=== PATIENT | female | born 1950 | race Caucasian/White ===

== ENCOUNTER → 2017-09-18 | Outpatient (CLI) | payer BC ==
[~2017-09-18] MED LIST: ASPIR 8181 MG PO; COZAAR100 MG PO; LIPITOR 20 MG T20 M1 PO; MOBIC15 MG PO; NORVASC5 MG PO
== END ==
LOC: RAD 14:55
DX: Z12.31 Encounter for screening mammogram for malignant neoplasm of breast (principal)

== ENCOUNTER 2017-09-24 12:18 | Emergency (ER) | payer BC ==
[~2017-09-24] VITALS: Ht 167.6 cm; Wt 63.5 kg
--- NOTE | ~2017-09-24 | EKG ---
[place] [address] [facility] [place] [address] ELECTROCARDIOGRAM REPORT Name: JERO BORRERO Room #: 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: GENE : 1950 Requested By: Alireza Serrato Order Number: [id number] MD: Usman Jones Measurements Intervals [place] Rate: 65 P: 30 DE: 150 QRS: 42 QRSD: 97 T: 10 QT: 398 QTc: 414 Interpretive Statements Sinus rhythm No significant abnormality Compared to ECG 04/22/2015 13:15:40 T-wave abnormality no longer present Electronically Signed On 09-24-2017 16:54:51 CDT by Usmna Jones [email or web address] <ELECTRONICALLY SIGNED> By: Usman Jones MD, [facility] 09/24/17 1654 1320 1320 Usman Jones MD, FACC /EPI
[~2017-09-24 12:18] MED LIST changes: -COZAAR100 MG PO; -MOBIC15 MG PO; -NORVASC5 MG PO
[2017-09-24] MEDS ORDERED: COZAAR100 MG PO (12:22)
[2017-09-24] MEDS ORDERED: NORVASC5 MG PO (12:23)
[2017-09-24 12:56] LABS: BASOPHILS 1.2 % (0.0-2.0); EOSINOPHILS 5.9 % (0.0-3.0); HEMATOCRIT 39.8 % (37.0-47.0); HEMOGLOBIN 13.8 gm/dL (12.0-15.0); LYMPHOCYTES 24.7 % (24.0-44.0); MCH 30.6 pg (26.0-34.0); MCHC 34.8 g/dL (28.0-37.0); MONOCYTES 8.5 % (1.0-8.0); PLATELET COUNT 256 thou/uL (150-400); POLYS 59.7 % (36.0-66.0); RBC 4.52 mil/uL (4.20-5.00); RDW 13.1 % (10.5-14.5); WBC 8.4 thou/uL (4.0-11.0)
[2017-09-24 13:03] LABS: ANION GAP 10 mmol/L (7-16); BUN 15 mg/dL (7-18); CALCIUM 9.9 mg/dL (8.5-10.1); CHLORIDE 102 mmol/L (98-107); CO2 26 mmol/L (21-32); CREATININE 0.9 mg/dL (0.6-1.0); GLUCOSE 90 mg/dL (74-106); POTASSIUM 4.2 mmol/L (3.5-5.1); SODIUM 138 mmol/L (136-145)
[2017-09-24 13:11] LABS: ALBUMIN 3.9 g/dL (3.4-5.0); LIPASE 164 U/L (73-393); SGOT 20 U/L (15-37); SGPT 27 U/L (30-65); TOTAL BILIRUBIN 0.3 mg/dL (<0.1-1.0); TOTAL PROTEIN 7.6 g/dL (6.4-8.2); TROPONIN-I <0.06 ng/mL (<0.06)
[2017-09-24] MEDS ORDERED: MOBIC15 MG PO (13:34)
[2017-09-24 13:38] VITALS: BP 132/72
== END 2017-09-24 13:44 | disposition home or self-care (01) ==
LOC: ER 12:18
PROVIDERS: Physician Assistant
DX: K44.9 Diaphragmatic hernia without obstruction or gangrene (principal); R07.89 Other chest pain; I10 Essential (primary) hypertension; E78.5 Hyperlipidemia, unspecified; Z90.49 Acquired absence of other specified parts of digestive tract; Z87.891 Personal history of nicotine dependence; Z88.2 Allergy status to sulfonamides